=== PATIENT | male | born 1945 | race Hispanic/Latino ===

== ENCOUNTER 2024-10-28 08:47 | Day surgery (SDC) | payer OTHER ==
[2024-10-28] MEDS ORDERED: Iopamidol-M 200 41% 10 ML VIAL FS ONE (10:39)
[2024-10-28 11:14] VITALS: BP 174/74; TEMP 98.2
== END 2024-10-28 10:55 | disposition home or self-care (01) ==
LOC: CSHRAD 08:47
PROVIDERS: ATTEND Specialist
PROC: B02BYZZ Computerized Tomography (CT Scan) of Spinal Cord using Other Contrast (ICD-10-PCS; principal; 2024-10-28)
DX: M54.16 Radiculopathy, lumbar region (principal)
CPT/HCPCS: 62284; 72132; 77003; Q9966